=== PATIENT | female | born 1960 ===

== ENCOUNTER → 2017-10-24 | Emergency (ER) | payer OTHER ==
[~2017-10-24] VITALS: Ht 180.3 cm; Wt 77.1 kg
[~2017-10-24] MED LIST: CYMBALTA60 MG; DICLOFENAC SODI50 MG PO; EFFEXOR XR150 MG; LISINOPRIL10 MG; NEURONTIN300 MG; NORFLEX100MG PO
== END | disposition home or self-care (01) ==
LOC: ER 10:46
DX: S13.4XXA Sprain of ligaments of cervical spine, initial encounter (principal); S33.5XXA Sprain of ligaments of lumbar spine, initial encounter; V43.02XA Car driver injured in collision with other type car in nontraffic accident, initial encounter; Y93.89 Activity, other specified; Y92.488 Other paved roadways as the place of occurrence of the external cause; Y99.8 Other external cause status

== ENCOUNTER → 2017-10-30 | Emergency (ER) | payer OTHER ==
[~2017-10-30] VITALS: Ht 180.3 cm; Wt 72.6 kg
[~2017-10-30] MED LIST changes: +MEDROLPACK PO; +TUSSI PRES-B L120 M1 PO; +ZITHROMAX TRI-500 MG PO
== END | disposition home or self-care (01) ==
LOC: ER 11:57
DX: J45.998 Other asthma (principal); J06.9 Acute upper respiratory infection, unspecified

== ENCOUNTER 2018-11-30 17:31 | Emergency (ER) | payer OTHER ==
[~2018-11-30] VITALS: Ht 182.9 cm; Wt 77.1 kg
== END 2018-11-30 19:36 | disposition home or self-care (01) ==
LOC: ER 17:31
DX: J06.9 Acute upper respiratory infection, unspecified (principal)